=== PATIENT | male | born 1975 | race Caucasian/White ===

== ENCOUNTER 2018-07-28 11:19 | Emergency (ER) | payer MEDICAID ==
[~2018-07-28] VITALS: Wt 84.5 kg
[2018-07-28 11:24] VITALS: BP 141/67; PULSE 78; RESP 18
--- NOTE | 2018-07-28 12:17 | ERD ---
ER Documentation Chief Complaint Chief Complaint LAC LEFT HND FROM SAW INJURY HPI Patient is a 43 years old male with no known PMHx presenting to the clinic for left dorsal base of thumb laceration x 2 hours. Patient reports doing cutting wood with the saw when he accidentally cut his left hand. Patient cannot recall last tetanus. ROS All systems reviewed and are negative except as per history of present illness. Medications Home Meds Active Scripts Ibuprofen* (Motrin*) 800 Mg Tab, 800 MG PO Q6H PRN for PAIN AND OR ELEVATED TEMP, #30 TAB Prov:RIZWANA MORALES PA-C 07/28/18 Cephalexin* (Keflex*) 500 Mg Capsule, 500 MG PO QID for 7 Days, #28 CAP Prov:RIZWANA MORALES PA-C 07/28/18 Allergies Allergies: Coded Allergies: No Known Allergy (Unverified , 07/28/18) PMhx/Soc Medical and Surgical Hx: pt denies Medical Hx, pt denies Surgical Hx History of Surgery: No Anesthesia Reaction: No Hx Neurological Disorder: No Hx Respiratory Disorders: No Hx Cardiac Disorders: No Hx Psychiatric Problems: No Hx Miscellaneous Medical Probl: No Hx Alcohol Use: No Hx Substance Use: No Hx Tobacco Use: No Smoking Status: Never smoker FmHx Family History: No diabetes, No coronary disease, No other Physical Exam Vitals Vital Signs Date Temp Pulse Resp B/P (MAP) Pulse Ox O2 O2 Flow FiO2 Time Delivery Rate 07/28/18 98.1 78 18 141/67 99 11:24 (91) Physical Exam Const: No acute distress Head: Atraumatic Resp: Clear to auscultation bilaterally Cardio: Regular rate and rhythm, no murmurs Neur: Awake and alert Psych: Normal Mood and Affect Left hand exam: 5cm deep laceration located at base of dorsal hallux to the wrist with active bleeding. Results 24 hrs Current Medications Medications Dose Sig/Tai Start Time Status Last (Trade) Ordered Route PRN Stop Time Admin Dose Reason Admin Diphtheria/ 0.5 ml ONCE ONCE 07/28/18 DC 07/28/18 Tetanus/Acell IM* 12:30 07/28/18 12:19 Pertussis 12:34 (Adacel) Lidocaine 20 ml ONCE ONCE 07/28/18 DC (Xylocaine SC 12:30 07/28/18 1% (Mdv) 20 12:34 ml) Ketorolac 60 mg ONCE STAT 07/28/18 DC 07/28/18 Tromethamine IM 12:25 07/28/18 12:32 (Toradol) 12:26 Bacitracin 1 applic ONCE ONCE 07/28/18 (Bacitracin TOP 14:00 07/28/18 0.5%/ Zinc 14:01 Oint) Procedures/MDM Patient was seen and evaluated for left hand laceration. Wound cleaning with NS and thorough irrigation followed by laceration repair. Lidocaine (1%) applied followed by Vicryl sutures (3) placed and 13-4.0 prolene sutures placed. Patient tolerated the procedure well and was followed by dressing and thumb spica splint. Patient was advised to f/u in 7 days for suture removal. Patient was advised to f/u with hand specialist for possible neurological injury. Departure Diagnosis: Primary Impression: Laceration Condition: Stable Patient Instructions: Laceration, Hand Referrals: [facility] Additional Instructions: Follow up in 7 days. Patient advised to return to the ED immediately for new or worsening symptoms. Patient advised to follow up with primary care provider in the next 24-48 hours. Patient verbalized understanding and agrees with treatment plan and course of action. If patient has no primary care they may follow up with [facility] [address] [place] [id number] or [facility] [address] [place] [address] or [facility] [address] [place] [address] RIZWANA MORALES PA-C Jul 28, 2018 12:17
[2018-07-28] MEDS ORDERED: KETOROLAC 60 MG INJ IM STA (12:25)
[2018-07-28] MEDS ORDERED: LIDOCAINE 1% (MDV) 20 ML INJ SC ONE (12:30)
[2018-07-28] MEDS ORDERED: DIPHTH/TET/ACEL PERTUSS (ADULT) 0.5 ML VIAL IM* ONE (12:30)
[2018-07-28] MEDS ORDERED: IBUP800T48 PO (13:53)
[2018-07-28] MEDS ORDERED: CEPH-443 PO (13:53)
[2018-07-28] MEDS ORDERED: BACITRACIN 0.5%/ZINC 28.35 GM OINT TOP ONE (14:00)
== END 2018-07-28 14:35 | disposition home or self-care (01) ==
LOC: FTE 11:19
DX: S61.412A Laceration without foreign body of left hand, initial encounter (principal); W26.8XXA Contact with other sharp object(s), not elsewhere classified, initial encounter; Y92.9 Unspecified place or not applicable
CPT/HCPCS: 12002; 90471; 90715; 96372; J1885; Z7502; Z7610

== ENCOUNTER 2018-07-30 16:21 | Emergency (ER) | payer MEDICAID ==
[~2018-07-30] VITALS: Ht 162.6 cm; Wt 75.0 kg
[~2018-07-30 16:21] MED LIST: CEPH-443 PO; IBUP800T48 PO
[2018-07-30 16:36] VITALS: BP 144/67; PULSE 76; RESP 16; Ht 162.6 cm; Wt 75.0 kg
--- NOTE | 2018-07-30 17:19 | ERD ---
ER Documentation Chief Complaint Chief Complaint LEFT HAND/ARM RECHECK, SPLINT IN PLACE, DENIES PAIN HPI This is a 43-year-old Liberian speaking male presents the ED for wound recheck status post laceration repair on July 28, 2018 while at work. 13 sutures were placed. Patient is currently taking his antibiotics. He denies any increasing pain, denies any discharge, fevers, chills. Denies any new injuries. ROS All systems reviewed and are negative except as per history of present illness. Medications Home Meds Active Scripts Ibuprofen* (Motrin*) 800 Mg Tab, 800 MG PO Q6H PRN for PAIN AND OR ELEVATED TEMP, #30 TAB Prov:RIZWANA MORALES PA-C 07/28/18 Cephalexin* (Keflex*) 500 Mg Capsule, 500 MG PO QID for 7 Days, #28 CAP Prov:RIZWANA MORALES PA-C 07/28/18 Allergies Allergies: Coded Allergies: No Known Allergy (Unverified , 07/28/18) PMhx/Soc History of Surgery: No Anesthesia Reaction: No Hx Neurological Disorder: No Hx Respiratory Disorders: No Hx Cardiac Disorders: No Hx Psychiatric Problems: No Hx Miscellaneous Medical Probl: No Hx Alcohol Use: No Hx Substance Use: No Hx Tobacco Use: No Physical Exam Vitals Vital Signs Date Temp Pulse Resp B/P (MAP) Pulse Ox O2 O2 Flow FiO2 Time Delivery Rate 07/30/18 98.4 76 16 144/67 99 16:36 (92) Physical Exam Const: No acute distress Head: Atraumatic Eyes: Normal Conjunctiva ENT: Normal External Ears, Nose and Mouth. Neck: Full range of motion. No meningismus Skin: No petechiae or rashes Back: No midline or flank tenderness Ext: + [address] along the left dorsal hand, well-healing l aceration. No discharge. No surrounding erythema or induration. FROM of digits 1-5 and wrist. Cap refill less than 2 seconds. Median/ulnar/radial nerves intact. RUE normal. Neur0: Awake and alert Psych: Normal Mood and Affect Procedures/MDM 43-year-old male presents with wound recheck status post laceration repair 2 days ago. Wound is healing well. No signs of ischemic necrosis, abscess, sepsis or other deep space infection. Sutures can removed in 7 days. He was told to finish his course of antibiotics and to continue taking the pain medications as needed. Strict return precautions given. Departure Diagnosis: Primary Impression: Encounter for wound re-check Condition: Stable Patient Instructions: Wound Check, Lac F/U (No Infection) Referrals: [facility] YOU HAVE RECEIVED A MEDICAL SCREENING EXAM AND THE RESULTS INDICATE THAT YOU DO NOT HAVE A CONDITION THAT REQUIRES URGENT TREATMENT IN THE EMERGENCY DEPARTMENT. FURTHER EVALUATION AND TREATMENT OF YOUR CONDITION CAN WAIT UNTIL YOU ARE SEEN IN YOUR DOCTORS OFFICE WITHIN THE NEXT 1-2 DAYS. IT IS YOUR RESPONSIBILITY TO MAKE AN APPOINTMENT FOR FOLOW-UP CARE. IF YOU HAVE A PRIMARY DOCTOR --you should call your primary doctor and schedule an appointment IF YOU DO NOT HAVE A PRIMARY DOCTOR YOU CAN CALL OUR PHYSICIAN REFERRAL HOTLINE AT IF YOU CAN NOT AFFORD TO SEE A PHYSICIAN YOU CAN CHOSE FROM THE FOLLOWING [facility] [address] [facility] [address] [facility] [place] [address] [facility] [address] [facility] [address] [facility]. [address] Additional Instructions: Return here in 7 days for removal of your sutures. Finish your course of anti biotics. Take pain medication as needed. Return here for any discharge, fevers, worsening pain or any other symptoms. BILL WALLS PA-C Jul 30, 2018 17:18
== END 2018-07-30 17:26 | disposition home or self-care (01) ==
LOC: FTE 16:21
DX: Z48.00 Encounter for change or removal of nonsurgical wound dressing (principal)
CPT/HCPCS: 99281

== ENCOUNTER 2018-08-05 08:26 | Emergency (ER) | payer MEDICAID ==
[~2018-08-05] VITALS: Ht 170.2 cm; Wt 85.4 kg
[2018-08-05 08:28] VITALS: BP 125/73; PULSE 86; RESP 18; Ht 170.2 cm; Wt 85.4 kg
--- NOTE | 2018-08-05 09:30 | ERD ---
ER Documentation Chief Complaint Chief Complaint for suture removal on lt hand HPI 43-year-old male presents to ED for suture removal to left hand. Patient states to have sustained laceration to left hand 7 days [employer], was seen here tetanus status updated and received 15 sutures total. 2 absorbable sutures placed and 13 superficial sutures placed. Patient states to have presented 2 days after sustaining injury and was told to return in 7 days. Denies any current pain, swelling, discharge, fever or chills. Patient notes laceration site healing well. Currently taking any medication for pain or antibiotics. ROS All systems reviewed and are negative except as per history of present illness. Medications Home Meds Active Scripts Ibuprofen* (Motrin*) 800 Mg Tab, 800 MG PO Q6H PRN for PAIN AND OR ELEVATED TEMP, #30 TAB Prov:RIZWANA MORALES PA-C 07/28/18 Cephalexin* (Keflex*) 500 Mg Capsule, 500 MG PO QID for 7 Days, #28 CAP Prov:RIZWANA MORALES PA-C 07/28/18 Allergies Allergies: Coded Allergies: No Known Allergy (Unverified , 07/28/18) PMhx/Soc History of Surgery: No Anesthesia Reaction: No Hx Neurological Disorder: No Hx Respiratory Disorders: No Hx Cardiac Disorders: No Hx Psychiatric Problems: No Hx Miscellaneous Medical Probl: No Hx Alcohol Use: No Hx Substance Use: No Hx Tobacco Use: No FmHx Family History: No diabetes, No coronary disease, No other Physical Exam Vitals Vital Signs Date Temp Pulse Resp B/P (MAP) Pulse Ox O2 O2 Flow FiO2 Time Delivery Rate 08/05/18 98.0 86 18 125/73 100 08:28 (90) Physical Exam Constitutional: Well developed. Well nourished. No acute distress Head/Eyes: Atraumatic. Normocephalic. PERRL. EOMI ENT: Moist mucous membranes. Voice normal. Neck: Supple. No lymphadenopathy Extremities: No edema, Full ROM. Approximately 9 cm linear laceration across the dorsal aspect of the left hand, with 13 visible simple interrupted sutures. Visible scabbing, no gross edema, erythema, warmth. Nontender to palpation. Able to wiggle fingers, radial pulse 2+, sensation intact to radial, medial, and ulnar distribution. Brisk cap refill. Skin: Dry. No rashes. Warm Neurological: Alert and oriented X 3. Normal speech Psychiatric: Normal mood. Normal affect Procedures/MDM Suture Removal by me: 4 sutures removed with tweezers and scissors without incident. Remainder of sutures left intact as sutures not ready to be removed at this time. Wound shows no evidence of infection, foreign body, neurologic injury, vascular injury, open joint or tendon laceration. Patient to follow up within 2 to 5 days. MDM: This is a 43-year-old male who presents to the ED for suture removal. 4 Sutures removed however at this time remainder of sutures not yet appropriate for removal. 2 applications Dermabond placed over suture removal site. Consulted patient regarding proper wound care, to keep area dry as sure to the area will cause the Dermabond to dissociate from skin. Patient is advised to return to the ED within the next 2 to 5 days for removal of remaining sutures. Pt to return sooner if develops warmth, swelling, purulent discharge, fever or chills. Patient is stable for discharge at this time. Patient expressed verbal understanding and agreement to treatment plan, all questions addressed and answered. Departure Diagnosis: Primary Impression: Suture check Additional Impression: Encounter for removal of sutures Condition: Good Patient Instructions: Suture Care Additional Instructions: Hoy te vimos en la robinson de emergencias. En bailee momento, grayson costuras no estan listo para remover. Por favor regresa en 2-5 rosenbaum para remover. SUZIE ZHANG PA-C Aug 05, 2018 09:30
== END 2018-08-05 09:47 | disposition home or self-care (01) ==
LOC: FTE 08:26
DX: Z48.02 Encounter for removal of sutures (principal)
CPT/HCPCS: 99281

== ENCOUNTER 2018-08-08 14:07 | Emergency (ER) | payer MEDICAID ==
[~2018-08-08] VITALS: Ht 172.7 cm; Wt 85.3 kg
[2018-08-08 14:11] VITALS: Ht 172.7 cm; Wt 85.3 kg
--- NOTE | 2018-08-08 15:40 | ERD ---
ER Documentation Chief Complaint Chief Complaint for suture removal on lt hand HPI 33-year-old male presenting for suture removal of the left thumb. 10 days ago patient had sutures placed after he cut himself with a soft. Patient is [id number]. Patient denies any purulence or bleeding from the left thumb. Denies other medical problems. NKDA. Surgical history denies. Social denies ROS All systems reviewed and are negative except as per history of present illness. Medications Home Meds Active Scripts Ibuprofen* (Motrin*) 800 Mg Tab, 800 MG PO Q6H PRN for PAIN AND OR ELEVATED TEMP, #30 TAB Prov:RIZWANA MORALES PA-C 07/28/18 Cephalexin* (Keflex*) 500 Mg Capsule, 500 MG PO QID for 7 Days, #28 CAP Prov:RIZWANA MORALES PA-C 07/28/18 Allergies Allergies: Coded Allergies: No Known Allergy (Unverified , 07/28/18) PMhx/Soc History of Surgery: No Anesthesia Reaction: No Hx Neurological Disorder: No Hx Respiratory Disorders: No Hx Cardiac Disorders: No Hx Psychiatric Problems: No Hx Miscellaneous Medical Probl: No Hx Alcohol Use: No Hx Substance Use: No Hx Tobacco Use: No FmHx Family History: No diabetes, No coronary disease, No other Physical Exam Vitals Vital Signs Date Temp Pulse Resp B/P (MAP) Pulse Ox O2 O2 Flow FiO2 Time Delivery Rate 08/08/18 98.5 84 16 133/77 99 14:11 (95) Physical Exam GENERAL: The patient is well-appearing, well-nourished, in no acute distress CHEST: Clear to auscultation bilaterally. There are no rales, wheezes or rhonchi. HEART: Regular rate and rhythm. No murmurs, clicks, rubs or gallops. EXTREMITIES: Patient is able to flex of the left thumb but unable to extend. Patient is neurovascular intact cap refill less than 2 seconds to the left thumb. NEUROLOGIC: Alert and oriented. Cranial nerves II through XII intact. Motor strength in all 4 extremities with 5 out of 5 strength. Sensation grossly intact. Normal speech and gait. SKIN: Healed laceration noted to the left hand over the thenar muscle extending to the dorsal aspect of the left thumb. No surrounding erythema or purulence. Procedures/MDM ER course: Sutures removed to the left thumb. Dr. Riley evaluated patient at bedside to evaluate for tendon injury. Patient was placed in thumb spica splint. MDM: 43-year-old male presenting with injury to left thumb. Sutures removed without signs of infection to the left thumb. Patient has concerning findings for tendon injury as he is unable to extend at the left thumb. I educated patient on the importance of following up with hand clinic given this is a bowen rgical correction needed. Patient was discharged with hand clinic information and told to follow-up tomorrow. I have concern for possible extensor tendon injury of the left thumb. Patient's flexion of the left thumb appears to be intact and neurovascularly intact as well. Patient is discharged and told to follow-up with primary care in hand clinic. All questions answered at discharge Departure Diagnosis: Primary Impression: Tendon injury Additional Impression: Encounter for removal of sutures Condition: Stable Patient Instructions: Suture Removal, No Complication, Tendon Rupture, Finger Referrals: [facility] Additional Instructions: FOLLOW UP WITH YOUR PRIMARY CARE PHYSICIAN TOMORROW.Return to this facility if you are not improving as expected. ALLISON DIAS PA-C Aug 08, 2018 15:40
[2018-08-08 16:01] VITALS: BP 129/74; PULSE 89; RESP 16
== END 2018-08-08 16:03 | disposition home or self-care (01) ==
LOC: FTE 14:07
DX: S61.012D Laceration without foreign body of left thumb without damage to nail, subsequent encounter (principal); W26.9XXD Contact with unspecified sharp object(s), subsequent encounter; Y92.9 Unspecified place or not applicable
CPT/HCPCS: 29125; Z7502